=== PATIENT | female | born 1975 | race African-American/Black ===

== ENCOUNTER 2019-02-17 11:54 | Inpatient (IN) | payer OTHER ==
--- NOTE | 2019-02-17 12:36 | PDOC ---
History of Present Illness - General Chief Complaint: Back Pain Stated Complaint: SENT BY PCP / PAIN Time Seen by Provider: 02/17/19 12:36 History Source: Patient Exam Limitations: No Limitations - History of Present Illness Initial Comments: 02/17/19 13:07 43 year old female with PMH lumbar disc disease, lumbar spine surgery, nicotine user (1 cigarette 3 times a week), GERD, epidural injections (last prior to 2016 ) presented to ED for back pain x1 week. Pt was seen by Dr. Domínguez 02/11/19 for back pain, was prescribed Oxycodone 10 mg and Flexeril 10 mg on top other Gabapentin 100 mg without relief of her pain, pt was told if her pain persisted she should come to the ED. Pt stated her back pain is located to her bilateral low back, radiating down to her bilateral knees, describes a dull and sometimes sharp. Pt admitted to urinary incontinence x6 months, occurring when she coughs and after she urinates she has a few drops of urine in her underwear. Pt denied bowel incontinence, fever, chills, weakness, numbness. MRI performed 12/28/18: L3/L4 diffuse disc bulging with mild impingement of the central canal and severe left foraminal stenosis. L4/L5 diffuse disc bulging producing severe central canal and bilateral foraminal stenosis. L5/S1 moderate central canal severe right and mild left foraminal stenosis. disc material appears to contact the existing right S1 nerve root. distal cord maintains intact morphology. distal cord signal intensity is preserved. nerve roots and cauda equina appear intact. Allergies: NKDA Past History - Past Medical History Allergies/Adverse Reactions: Allergies Allergy/AdvReac Type Severity Reaction Status Date / Time No Known Allergies Allergy Unverified 02/17/19 12:07 Home Medications: Ambulatory Orders Ferrous Sulfate 325 mg PO BID 02/17/19 Gabapentin 300 mg PO TID 02/17/19 Omeprazole 20 mg PO DAILY 02/17/19 Oxycodone HCl 10 mg PO Q8H PRN 02/17/19 Anemia: Yes Asthma: Yes Cancer: No Cardiac Disorders: No CVA: No COPD: No CHF: No Dementia: No Diabetes: No GI Disorders: Yes (GERD) Disorders: No HTN: No Hypercholesterolemia: No Liver Disease: No Seizures: No Thyroid Disease: No - Surgical History Abdominal Surgery: No Appendectomy: No Cardiac Surgery: No Cholecystectomy: No Lung Surgery: No Neurologic Surgery: No Orthopedic Surgery: Yes (laminectomy 10/22/16) - Suicide/Smoking/Psychosocial Hx Smoking History: Current some day smoker Have you smoked in the past 12 months: Yes Number of Cigarettes Smoked Daily: 3 If you are a former smoker, when did you quit?: 07/11/16 Information on smoking cessation initiated: No 'Breaking Loose' booklet given: 10/20/15 Hx Alcohol Use: No Drug/Substance Use Hx: No Substance Use Type: Alcohol, Cocaine Hx Substance Use Treatment: No (rehab [facility] outpatient [facility]) Review of Systems - Review of Systems Able to Perform ROS?: Yes Comments:: 02/17/19 13:11 General: denied fever, chills, generalized weakness. HEENT: denied sore throat, rhinorrhea, ear pain. Heart: denied chest pain, palpitations, syncope, diaphoresis. Respiratory: denied shortness of breath, cough, sputum production, hemoptysis. Abdomen: denied abdominal pain, nausea, vomiting, diarrhea, constipation, blood in stool. : denied dysuria, increased urinary frequency, hematuria, flank pain. Back: admitted to back pain. Musculoskeletal: denied joint pain, muscle pain, joint swelling. Neurological: admitted to urinary incontinence. denied headache, dizziness, numbness, tingling, weakness. Skin: denied rash, laceration, abrasion. *Physical Exam - Vital Signs Last Vital Signs Temp Pulse Resp BP Pulse Ox 98.7 F 97 H 20 145/90 100 02/17/19 12:05 02/17/19 12:05 02/17/19 12:05 02/17/19 12:05 02/17/19 12:05 - Physical Exam Comments: 02/17/19 13:13 Constitutional: Well-nourished, Well-developed, appearing stated age. HEENT: head is normocephalic, atraumatic. EOMI. PERRLA. Neck: supple. Full ROM. Heart: regular rhythm. no murmurs, rubs or gallops. Lungs: clear to auscultation bilaterally. no crackles, rhonchi or wheezing. no stridor. Abdomen: soft, nontender. normal bowel sounds. no rebound, guarding, masses. Extremities: peripheral pulses intact. no lower extremity edema. Back: tenderness to palpation of midline lumbar spine. no tenderness to palpation of lumabr paraspinal area. no rash to back. negative straight leg testing bilaterally. Rectal: good rectal tone. Neurological: CN 2-12 grossly intact. moves all four extremities, decreased LE strength secondary to back pain. Psych: awake, alert, oriented x3. follows commands. answers questions appropriately. ED Treatment Course - LABORATORY CBC & Chemistry Diagram: 02/18/19 07:00 02/18/19 07:00 Medical Decision Making - Medical Decision Making 02/17/19 13:14 43 year old female with above PMH sent to ED by Dr. Domínguez for intractable back pain. Initial Vital Signs Temp Pulse Resp BP Pulse Ox 98.7 F 97 H 20 145/90 100 02/17/19 12:05 02/17/19 12:05 02/17/19 12:05 02/17/19 12:05 02/17/19 12:05 Afebrile. No tachycardia. No tachypnea. Mild hypertension. No hypoxia on room air. Labs ordered: CBC, CMP, ESR Imaging ordered: CXR Medications ordered: Robaxin 1.5 g PO once, Prednisone 60 mg PO once,Lidocaine patch EKG performed at 02/17/19 13:58 [facility] and the lab are not communicating, cannot see lab results in the computer. 02/17/19 14:18 Dr. Bansal spoke with Dr. Domínguez, pt to be admitted with Neurosurgery consult. MRI lumbar spine ordered. Dr. Yip paged. 02/17/19 14:58 CMP Sodium 137 mmol/L (136-145) 02/17/19 13:45 Potassium 4.1 mmol/L (3.5-5.1) 02/17/19 13:45 Chloride 105 mmol/L (98-107) 02/17/19 13:45 Carbon Dioxide 25 mmol/L (21-32) 02/17/19 13:45 Anion Gap 7 MMOL/L (8-16) L 02/17/19 13:45 BUN 8 mg/dL (7-18) 02/17/19 13:45 Creatinine 0.6 mg/dL (0.55-1.3) 02/17/19 13:45 Est GFR (CKD-EPI)AfAm 130.30 02/17/19 13:45 Est GFR (CKD-EPI)NonAf 112.42 02/17/19 13:45 Random Glucose 84 mg/dL (74-106) 02/17/19 13:45 Calcium 9.1 mg/dL (8.5-10.1) 02/17/19 13:45 Total Bilirubin 0.3 mg/dL (0.2-1) 02/17/19 13:45 AST 17 U/L (15-37) 02/17/19 13:45 ALT 26 U/L (13-61) 02/17/19 13:45 Alkaline Phosphatase 74 U/L (45-117) 02/17/19 13:45 Total Protein 7.6 g/dl (6.4-8.2) 02/17/19 13:45 Albumin 3.6 g/dl (3.4-5.0) 02/17/19 13:45 Serum , Qual Negative 02/17/19 13:45 No electrolyte abnormalities. No LONDON. No transaminitis. Serum testing negative. 02/17/19 15:06 CBC WBC 8.9 K/mm3 (4.0-10.0) 02/17/19 13:45 RBC 4.20 M/mm3 (3.60-5.2) 02/17/19 13:45 Hgb 9.9 GM/dL (10.7-15.3) L 02/17/19 13:45 Hct 32.4 % (32.4-45.2) 02/17/19 13:45 MCV 77.0 fl (80-96) L 02/17/19 13:45 MCH 23.5 pg (25.7-33.7) L 02/17/19 13:45 MCHC 30.5 g/dl (32.0-36.0) L 02/17/19 13:45 RDW 19.5 % (11.6-15.6) H 02/17/19 13:45 Plt Count 505 K/MM3 (134-434) H 02/17/19 13:45 MPV 7.3 fl (7.5-11.1) L 02/17/19 13:45 Absolute Neuts (auto) 5.5 K/mm3 (1.5-8.0) 02/17/19 13:45 Neutrophils % 62.5 % (42.8-82.8) 02/17/19 13:45 Lymphocytes % 28.7 % (8-40) 02/17/19 13:45 Monocytes % 6.3 % (3.8-10.2) 02/17/19 13:45 Eosinophils % 1.9 % (0-4.5) 02/17/19 13:45 Basophils % 0.6 % (0-2.0) 02/17/19 13:45 Nucleated RBC % 0 % (0-0) 02/17/19 13:45 ESR 27 mm/hr (0-20) H 02/17/19 13:45 No leukocytosis. Microcytic anemia. Thrombocytosis. Mild elevation of ESR. Dr. Bansal spoke with Dr. Yip. Dr. Bansal spoke with Dr. Domínguez. Pt to be admitted for intactable back pain requiring neurosurgery evaluation. *DC/Admit/Observation/Transfer Diagnosis at time of Disposition: Back pain - Discharge Dispostion Condition at time of disposition: Stable Decision to Admit order: Yes - Referrals - Patient Instructions - Post Discharge Activity
[2019-02-17] MEDS ORDERED: KETOROLAC TROMETHAMINE 30 MG/1 ML VIAL IVPUSH ONE ×2 (13:57→22:55)
[2019-02-17] MEDS ORDERED: predniSONE 20 MG TABLET (UD) PO ONE (13:57)
[2019-02-17] MEDS ORDERED: METHOCARBAMOL 750 MG TABLET PO ONE (14:00)
[2019-02-17] MEDS ORDERED: predniSONE 20 MG TABLET (UD) ONE (14:06)
[2019-02-17] MEDS ORDERED: KETOROLAC TROMETHAMINE 30 MG/1 ML VIAL ONE (14:07)
[2019-02-17] MEDS ORDERED: METHOCARBAMOL 500 MG TABLET ONE (14:07)
[2019-02-17] MEDS ORDERED: morphine CARPU-JECT 4 MG/1 ML DISP.SYRIN IVPUSH ONE (14:12)
[2019-02-17] MEDS ORDERED: LIDOCAINE 5% TOPICAL PATCH TP ONE (14:12)
--- NOTE | 2019-02-17 14:15 | PDOC ---
Documentation entered by Libertad Hernandez SCRIBE, acting as scribe for Renita Bansal DO. Renita Bansal DO: This documentation has been prepared by the oliviaibe, Libertad Hernandez SCRIBE, under my direction and personally reviewed by me in its entirety. I confirm that the documentation accurately reflects all work, treatment, procedures, and medical decision making performed by me. Attending Attestation - Resident Resident Name: Marcia Ballard - ED Attending Attestation I have performed the following: I have examined & evaluated the patient, The case was reviewed & discussed with the resident, I agree w/resident's findings & plan, Exceptions are as noted - HPI HPI: 02/17/19 14:37 The patient is a 43 year old female, with a past medical history of lumbar disc disease, epidural injections, GERD, current smoker (smokes cigarette 3x a week) , who presents to the ED for 1 week of back pain. Patient saw Dr. Domínguez on for the pain and was prescribed oxycodone 10 mg and gabapentin 100 mg. Patient has been taking the medications with no relief of her symptoms. She was advised to report to the ED for further evaluation if her pain persisted. Patient is also complaining of urinary incontinence. She denies any fevers, chills, nausea, vomiting, diarrhea, or abdominal pain. Denies any chest pain or shortness of breath. Denies any weakness, lightheadedness, or changes in strength or sensation. - Physicial Exam PE: 02/17/19 14:46 GENERAL: Awake, alert, and fully oriented, in no acute distress HEAD: No signs of trauma EYES: PERRLA, EOMI, sclera anicteric, conjunctiva clear ENT: Auricles normal inspection, hearing grossly normal, nares patent, oropharynx clear without exudates. Moist mucosa NECK: Normal ROM, supple, no lymphadenopathy, JVD, or masses LUNGS: Breath sounds equal, clear to auscultation bilaterally. No wheezes, and no crackles HEART: Regular rate and rhythm, normal S1 and S2, no murmurs, rubs or gallops ABDOMEN: Soft, nontender, normoactive bowel sounds. No guarding, no rebound. No masses MSK: (+)Midline spinal tenderness, B/L paraspinal tenderness, +straight leg raise, patient has pain at L3/L4/L5. EXTREMITIES: Normal range of motion, no edema. No clubbing or cyanosis. No cords, erythema. NEUROLOGICAL: Cranial nerves II through XII grossly intact. Normal speech. SKIN: Warm, Dry, normal turgor, no rashes or lesions noted - Medical Decision Making 02/17/19 14:13 I, Dr. Renita Bansal, DO, attest that this document has been prepared under my direction and personally reviewed by me in its entirety. I further attest, that it accurately reflects all work, treatment, procedures and medical decision -making performed by me. 02/17/19 14:13 a/p: 43yo female with hx of herniated disc from l3-4 and prior sx presents with worsening lbp and radiation down the legs -hx of urinary incontinence x 6m -hx of lumbar sx at [facility] with Dr. Frias in 2017, still with pain -has been on oxy x 1 week without improvement -denies new trauma -will send labs, will discuss with Dr. Domínguez, call placed to Dr. Yip -pain control -will monitor and reassess 02/17/19 14:[address] Domínguez who accepts pt to service requests MRI lumbar spine states he spoke with Dr. Yip 02/17/19 14:35 case discussed with Ricky Wilson NP who accepts pt to service 02/17/19 15:[address] Yip who will see patient in consult 02/17/19 15:23 labs reviewed Heart Score/ECG Review - ECG Intrepretation Comment:: 02/17/19 14:49 sinus at 86, nl axis, nl interval, no acute st/t wave findings
[2019-02-17] MEDS ORDERED: LIDOCAINE 5% TOPICAL PATCH ONE (14:18)
[2019-02-17] MEDS ORDERED: morphine SULFATE 4 MG/ML VIAL ONE (14:18)
[2019-02-17 14:28] LABS: BASO % 0.6 % (0-2.0); EOS % 1.9 % (0-4.5); HEMATOCRIT 32.4 % (32.4-45.2); HEMOGLOBIN 9.9 GM/dL (10.7-15.3); LYMPH % 28.7 % (8-40); MCH 23.5 pg (25.7-33.7); MCHC 30.5 g/dl (32.0-36.0); MEAN PLT VOLUME 7.3 fl (7.5-11.1); MONO % 6.3 % (3.8-10.2); NEUT % 62.5 % (42.8-82.8); PLATELET COUNT 505 K/MM3 (134-434); RDW 19.5 % (11.6-15.6); WHITE BLOOD COUNT 8.9 K/mm3 (4.0-10.0)
[2019-02-17] MEDS ORDERED: DEXAMETHASONE SOD PHOSPHATE 20 MG/5 ML VIAL IVPB SCH (14:45)
[2019-02-17 14:54] LABS: ALBUMIN 3.6 g/dl (3.4-5.0); BILIRUBIN,TOTAL 0.3 mg/dL (0.2-1); CALCIUM 9.1 mg/dL (8.5-10.1); CREATININE 0.6 mg/dL (0.55-1.3); POTASSIUM 4.1 mmol/L (3.5-5.1); TOT PROT 7.6 g/dl (6.4-8.2)
[2019-02-17 15:02] LABS: ERYTHROCYTE SEDIMENTATION RATE 27 mm/hr (0-20)
[2019-02-17] MEDS ORDERED: DEXAMETHASONE SOD PHOSPHATE 4 MG/1 ML VIAL ONE (15:52)
--- NOTE | 2019-02-17 16:58 | HP ---
Admitting History and Physical - Primary Care Physician PCP: Hieu Domínguez - Admission Chief Complaint: chronic lower back pain History of Present Illness: Patient is a 43 y/o female with past medical history of lumbar disc disease, epidural injections, GERD. Patient presented to [facility] ER after complaints of worsening lower back pain over past couple of days. Pain is described as sharp and radiates down both lower legs. She states urinary incontinence is also accompanied with lower back pain. Patient currently taking oxycodone and gabapentin at home with minor relief. Most recent MRI from [facility] shows lumbar spondylosis. Patient denies fevers, chills, unintentional weight loss. Denies SOB, chest pain, dyspnea on exertion. History Source: Patient Limitations to Obtaining History: No Limitations - Past Medical History Gastrointestinal: Yes: GERD ...LMP: 12/20/15 - Past Surgical History Past Surgical History: Yes: - Smoking History Smoking history: Current some day smoker Have you smoked in the past 12 months: Yes Aproximately how many cigarettes per day: 3 If you are a former smoker, when did you quit?: 07/11/16 - Alcohol/Substance Use Hx Alcohol Use: No - Social History Usual Living Arrangement: Yes: With Spouse ADL: Independent History of Recent Travel: No Home Medications - Allergies Allergies/Adverse Reactions: Allergies Allergy/AdvReac Type Severity Reaction Status Date / Time No Known Allergies Allergy Unverified 02/17/19 12:07 - Home Medications Home Medications: Ambulatory Orders Ferrous Sulfate 325 mg PO BID 02/17/19 Omeprazole 20 mg PO DAILY 02/17/19 Oxycodone HCl 10 mg PO Q8H PRN 02/17/19 Cyclobenzaprine HCl [Flexeril -] 10 mg PO BID #8 tablet 02/19/19 Ferrous Sulfate [Feosol] 325 mg PO BID ud 02/19/19 Gabapentin [Neurontin -] 300 mg PO TID #36 capsule 02/19/19 Polyethylene Glycol 3350 [Miralax 119 gm Btl -] 17 gm PO DAILY #1 bottle Sennosides [Senna -] 2 tab PO HS PRN #60 tablet 02/19/19 oxyCODONE HCL [Roxicodone -] 10 mg PO Q8H PRN tablet MDD 3 02/19/19 Family Disease History - Family Disease History Family Disease History: [place]: Grandparent, Other: Mother (smoked dust many years ago) Review of Systems - Review of Systems Constitutional: reports: Weakness Eyes: reports: No Symptoms HENT: reports: No Symptoms Neck: reports: No Symptoms Cardiovascular: reports: No Symptoms Respiratory: reports: No Symptoms Gastrointestinal: reports: Abdominal Pain, Constipation, Nausea Genitourinary: reports: Incontinence Breasts: reports: No Symptoms Reported Musculoskeletal: reports: Back Pain Integumentary: reports: No Symptoms Neurological: reports: Numbness (lower extremities) Endocrine: reports: No Symptoms Hematology/Lymphatic: reports: No Symptoms Psychiatric: reports: No Symptoms Physical Examination Vital Signs: Vital Signs Temperature 98.7 F 02/17/19 12:05 Pulse Rate 96 H 02/17/19 15:44 Respiratory Rate 18 02/17/19 15:44 Blood Pressure 139/87 02/17/19 15:44 O2 Sat by Pulse Oximetry (%) 97 02/17/19 15:44 Constitutional: Yes: No Distress, Calm, Obese Eyes: Yes: Conjunctiva Clear HENT: Yes: Atraumatic Neck: Yes: Supple Cardiovascular: Yes: Regular Rate and Rhythm Respiratory: Yes: Regular, CTA Bilaterally Gastrointestinal: Yes: Normal Bowel Sounds, Soft, Tenderness (llq) Musculoskeletal: Yes: Back Pain (lower), Muscle Weakness Extremities: Yes: WNL Edema: No Neurological: Yes: Alert, Oriented Psychiatric: Yes: Alert, Oriented Labs: CBC, BMP 02/17/19 13:45 02/17/19 13:45 Problem List - Problems (1) Lumbar spondylosis Assessment/Plan: -Neurosurgery consult -pain management -Lumbar Spine MRI -PT -Decadron IVPB q6h Code(s): M47.816 - SPONDYLOSIS W/O MYELOPATHY OR RADICULOPATHY, LUMBAR REGION (2) GERD (gastroesophageal reflux disease) Assessment/Plan: -pantoprazole Code(s): K21.9 - GASTRO-ESOPHAGEAL REFLUX DISEASE WITHOUT ESOPHAGITIS
[2019-02-17 17:12] VITALS: BMI 41.5
[2019-02-17] MEDS ORDERED: LORazepam 1 MG TABLET PO ONE (18:21)
[2019-02-17] MEDS: oxyCODONE HCL 5 MG TABLET PO PRN (18:34)
[2019-02-17] MEDS: FERROUS SO4 325 MG TABLET (FP) PO SCH (21:50)
[2019-02-17] MEDS: GABAPENTIN 100 MG CAPSULE (FP) PO SCH (21:50)
[2019-02-17] MEDS: LIDOCAINE PATCH REMOVAL MC SCH (21:55)
[2019-02-18] MEDS: DEXAMETHASONE SOD PHOSPHATE 4 MG/1 ML VIAL IVPB SCH ×3 (01:10→17:36)
[2019-02-18] MEDS: oxyCODONE HCL 5 MG TABLET PO PRN ×3 (03:12→19:51)
[2019-02-18] MEDS: GABAPENTIN 100 MG CAPSULE (FP) PO SCH ×4 (05:48→21:28)
[2019-02-18 07:47] LABS: BASO % 0.2 % (0-2.0); HEMATOCRIT 29.5 % (32.4-45.2); HEMOGLOBIN 8.9 GM/dL (10.7-15.3); LYMPH % 9.3 % (8-40); MCH 23.5 pg (25.7-33.7); MCHC 30.3 g/dl (32.0-36.0); MEAN CELL VOLUME 77.6 fl (80-96); MEAN PLT VOLUME 7.4 fl (7.5-11.1); MONO % 3.1 % (3.8-10.2); NEUT % 87.4 % (42.8-82.8); PLATELET COUNT 502 K/MM3 (134-434); RBC 3.81 M/mm3 (3.60-5.2); RDW 19.1 % (11.6-15.6); WHITE BLOOD COUNT 13.4 K/mm3 (4.0-10.0)
[2019-02-18 08:56] LABS: ALBUMIN 3.5 g/dl (3.4-5.0); BILIRUBIN,TOTAL 0.2 mg/dL (0.2-1); CALCIUM 8.8 mg/dL (8.5-10.1); CREATININE 0.7 mg/dL (0.55-1.3); MAGNESIUM 2.3 mg/dL (1.8-2.4); PHOSPHOROUS 2.7 mg/dL (2.5-4.9); POTASSIUM 4.4 mmol/L (3.5-5.1); TOT PROT 7.5 g/dl (6.4-8.2)
--- NOTE | 2019-02-18 10:29 | PN ---
Progress Note, Physician Chief Complaint: Lumbar Spondylosis History of Present Illness: Previous notes and events reviewed awake and alert NAD Patient is refusing surgery, she states she does not have much outside family support for post-op phase and is scared of risks that come with surgery - Current Medication List Current Medications: Active Medications Dexamethasone Sodium Phosphate (Decadron Injection -) 4 mg IVPB Q8H-IV [facility] Last Admin: 02/18/19 01:10 Dose: 4 mg Ferrous Sulfate (Feosol -) 325 mg PO BID [facility] Last Admin: 02/17/19 21:50 Dose: 325 mg Gabapentin (Neurontin -) 100 mg PO TID [facility] Last Admin: 02/18/19 05:48 Dose: 100 mg Miscellaneous (Lidoderm Patch Removal) 1 each MC DAILY@2200 [facility] Last Admin: 02/17/19 21:55 Dose: 1 each Oxycodone HCl (Roxicodone -) 10 mg PO Q8H PRN PRN Reason: PAIN LEVEL 7 - 10 Last Admin: 02/18/19 03:12 Dose: 10 mg Pantoprazole Sodium (Protonix -) 40 mg PO DAILY [facility] - Objective Vital Signs: Vital Signs Temperature 98.2 F 02/18/19 04:00 Pulse Rate 89 02/18/19 04:00 Respiratory Rate 18 02/18/19 04:00 Blood Pressure 136/76 02/18/19 04:00 O2 Sat by Pulse Oximetry (%) 97 02/17/19 15:44 Constitutional: Yes: No Distress, Calm, Obese Eyes: Yes: Conjunctiva Clear HENT: Yes: Atraumatic Cardiovascular: Yes: Regular Rate and Rhythm Respiratory: Yes: Regular, CTA Bilaterally Gastrointestinal: Yes: Normal Bowel Sounds, Soft, Tenderness (llq) Musculoskeletal: Yes: Muscle Weakness Extremities: Yes: WNL Edema: No Neurological: Yes: Alert, Oriented Psychiatric: Yes: Alert, Oriented Labs: CBC, BMP 02/18/19 07:00 02/18/19 07:00 Problem List - Problems (1) Lumbar spondylosis Assessment/Plan: -Neurosurgery consult -pain management consult placed -Lumbar Spine CT scan performed -PT -Decadron IVPB q6h -patient is refusing surgery at present and would like conservative measures with PT and pain management Code(s): M47.816 - SPONDYLOSIS W/O MYELOPATHY OR RADICULOPATHY, LUMBAR REGION (2) GERD (gastroesophageal reflux disease) Assessment/Plan: -pantoprazole Code(s): K21.9 - GASTRO-ESOPHAGEAL REFLUX DISEASE WITHOUT ESOPHAGITIS Assessment/Plan see problem list dvt ppx
[2019-02-18] MEDS: PANTOPRAZOLE 40 MG TABLET (FP) PO SCH (10:42)
[2019-02-18] MEDS: FERROUS SO4 325 MG TABLET (FP) PO SCH ×2 (10:42→21:28)
[2019-02-18] MEDS ORDERED: KETOROLAC TROMETHAMINE 30 MG/1 ML VIAL IM PRN (11:12)
--- NOTE | 2019-02-18 13:25 | CONSULT ---
Consult - text type - Consultation Consultation Note: NEUROSURGERY CONSULTATION Pippa Hannah is a 43 year old Female who has achief complaint of low back and leg pains. The patient was referred to [facility] by Dr. Hieu Domínguez for further evaluation and management. 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 Over time, the Low back pain increased and eventually forced her to stop working. She described progressive disability and ultimately underwent decompressive surgery at [facility] with Dr. Frye. She underwent Left L34 discectomy via a minimally invasive approach. She has a well healed 3cm scar on her back. She describes urinary incontinence since the time of the surgery. The patient has aggravation of back pain with vibration and jostling such as riding in a car over a bumpy road, pot holes or rail road tracks. The patient has some aggravation of symptoms associated with Valsalvas maneuver. The patient walks better with a stooped posture such as pushing a shopping cart. MRI Lumbar is not available for review. By report, she has degenerative changes at L34, L45 and L5S1. CT Lumbar demonstrates Lumbar degenerative disease with moderate to severe spondylosis with osteophytes, disc bulges and hypertrophic facets and ligamentum flavum. There is evidence of prior decompression at L34 on the Left. The patient describes severe limitations of activities of daily living and a poor quality of life. I described the potential role of injections, bracing, and Physical Therapy as well as medical management in detail. After review of the patients symptoms and imaging, the patient would likely benefit from decompression and stabilization in the Lumbar spine. I described the risks, benefits and alternativesof L3-S1 laminectomies, reoperative at L34 , with interbody cages and arthrodesis and pedicle screws from L3-S1 for posterior/lateral fusion in great detail. I explained that the risks included, but were not limited to: , coma, paralysis, bleeding, infection, CSF leak possibly requiring spinal drainage or additional surgery, failure to fuse, failure to improve, instrumentation migration/malposition/malfunction and the need for additional surgery. I offered the patient the option to seek another opinion or another surgeon. All questions were answered. It is possible that careful review of the MRI may suggest that a more limited treatment may be of benefit. I strongly encouraged an opportunity to review her MRI prior to making final decisions regarding surgery. The patient states that she does not wish to proceed with surgery at this time. I would not push her towards surgery and feel that Pain Management & Epidural Steroid injection may be a good interim step for her. She will also likely benefit from a program of Physical Therapy and weight reduction.
--- NOTE | 2019-02-18 14:27 | EKG ---
Test Reason : Blood Pressure : / mmHG Vent. Rate : 086 BPM Atrial Rate : 086 BPM P-R Int : 146 ms QRS Dur : 080 ms QT Int : 386 ms P-R-T Axes : 021 023 080 degrees QTc Int : 461 ms POOR DATA QUALITY, INTERPRETATION MAY BE ADVERSELY AFFECTED NORMAL SINUS RHYTHM NONSPECIFIC T WAVE ABNORMALITY PROLONGED QT ABNORMAL ECG NO PREVIOUS ECGS AVAILABLE Confirmed by SPRING NGUYEN, TIERRA ([id number]) on 02/18/2019 2:26:54 PM Referred By: Confirmed By:TIERRA LONDONO MD
[2019-02-18] MEDS: CYCLOBENZAPRINE HCL 10 MG TABLET (FP) PO SCH (21:28)
[2019-02-18] MEDS: LIDOCAINE PATCH REMOVAL MC SCH (21:29)
[2019-02-18] MEDS ORDERED: SENNOSIDES 8.6MG TABLET (FP) PO PRN (21:56)
[2019-02-18] MEDS ORDERED: INSULIN (NOVOLOG) ASPART 100 UNITS/ML 10ML VIAL SQ ONE (21:58)
[2019-02-19] MEDS: DEXAMETHASONE SOD PHOSPHATE 4 MG/1 ML VIAL IVPB SCH ×2 (01:28→09:00)
[2019-02-19] MEDS: oxyCODONE HCL 5 MG TABLET PO PRN (04:15)
[2019-02-19] MEDS: GABAPENTIN 100 MG CAPSULE (FP) PO SCH (05:43)
[2019-02-19 06:44] VITALS: BP 129/72; PULSE 77; TEMP 98.2
[2019-02-19] MEDS: CYCLOBENZAPRINE HCL 10 MG TABLET (FP) PO SCH (09:36)
[2019-02-19] MEDS: FERROUS SO4 325 MG TABLET (FP) PO SCH (09:39)
[2019-02-19] MEDS: PANTOPRAZOLE 40 MG TABLET (FP) PO SCH (09:39)
--- NOTE | 2019-02-19 09:48 | DS ---
"Physical Examination Vital Signs: Vital Signs Temperature 98.2 F 02/19/19 06:40 Pulse Rate 77 02/19/19 06:40 Respiratory Rate 20 02/19/19 06:40 Blood Pressure 129/72 02/19/19 06:40 O2 Sat by Pulse Oximetry (%) 97 02/18/19 21:00 Findings/Remarks: Patient is a 43 y/o female with past medical history of lumbar disc disease, epidural injections, GERD. Patient presented to [facility] ER after complaints of worsening lower back pain over past couple of days. Pain is described as sharp and radiates down both lower legs. She states urinary incontinence is also accompanied with lower back pain. Patient currently taking oxycodone and gabapentin at home with minor relief. Most recent MRI from [facility] shows lumbar spondylosis. Constitutional: Yes: No Distress, Calm Eyes: Yes: Conjunctiva Clear HENT: Yes: Atraumatic Cardiovascular: Yes: Regular Rate and Rhythm Respiratory: Yes: Regular, CTA Bilaterally Gastrointestinal: Yes: Normal Bowel Sounds, Soft, Abdomen, Obese Musculoskeletal: Yes: Muscle Weakness Extremities: Yes: WNL Edema: No Neurological: Yes: Alert, Oriented Psychiatric: Yes: Alert, Oriented Labs: CBC, BMP 02/18/19 07:00 02/18/19 07:00 Discharge Summary Reason For Visit: BACK PAIN Current Active Problems Back pain (Acute) Lumbar spondylosis (Acute) Hospital Course: see progress notes Laboratory Tests 02/17/19 02/17/19 02/17/19 13:45 13:45 13:45 WBC 8.9 RBC 4.20 Hgb 9.9 L Hct 32.4 MCV 77.0 L MCH 23.5 L MCHC 30.5 L RDW 19.5 H Plt Count 505 H MPV 7.3 L Absolute Neuts (auto) 5.5 Neutrophils % 62.5 Lymphocytes % 28.7 Monocytes % 6.3 Eosinophils % 1.9 Basophils % 0.6 Nucleated RBC % 0 ESR 27 H Sodium 137 Potassium 4.1 Chloride 105 Carbon Dioxide 25 Anion Gap 7 L BUN 8 Creatinine 0.6 Est GFR (CKD-EPI)AfAm 130.30 Est GFR (CKD-EPI)NonAf 112.42 POC Glucometer Random Glucose 84 Calcium 9.1 Phosphorus Magnesium Total Bilirubin 0.3 AST 17 ALT 26 Alkaline Phosphatase 74 Total Protein 7.6 Albumin 3.6 Total Amylase Lipase TSH Serum , Qual Negative 02/17/19 02/17/19 02/18/19 16:24 21:58 07:00 WBC 13.4 H RBC 3.81 Hgb 8.9 L Hct 29.5 L MCV 77.6 L MCH 23.5 L MCHC 30.3 L RDW 19.1 H Plt Count 502 H MPV 7.4 L Absolute Neuts (auto) 11.7 H Neutrophils % 87.4 H D Lymphocytes % 9.3 D Monocytes % 3.1 L Eosinophils % 0.0 D Basophils % 0.2 Nucleated RBC % 0 ESR Sodium Potassium Chloride Carbon Dioxide Anion Gap BUN Creatinine Est GFR (CKD-EPI)AfAm Est GFR (CKD-EPI)NonAf POC Glucometer 101 294 Random Glucose Calcium Phosphorus Magnesium Total Bilirubin AST ALT Alkaline Phosphatase Total Protein Albumin Total Amylase Lipase TSH Serum , Qual 02/18/19 02/18/19 02/18/19 07:00 11:55 16:44 WBC RBC Hgb Hct MCV MCH MCHC RDW Plt Count MPV Absolute Neuts (auto) Neutrophils % Lymphocytes % Monocytes % Eosinophils % Basophils % Nucleated RBC % ESR Sodium 134 L Potassium 4.4 Chloride 103 Carbon Dioxide 22 Anion Gap 9 BUN 9 Creatinine 0.7 Est GFR (CKD-EPI)AfAm 123.86 Est GFR (CKD-EPI)NonAf 106.87 POC Glucometer 219 229 Random Glucose 234 H Calcium 8.8 Phosphorus 2.7 Magnesium 2.3 Total Bilirubin 0.2 AST 11 L ALT 27 Alkaline Phosphatase 76 Total Protein 7.5 Albumin 3.5 Total Amylase 71 Lipase 96 TSH 0.31 L Serum , Qual 02/18/19 02/19/19 21:25 05:44 WBC RBC Hgb Hct MCV MCH MCHC RDW Plt Count MPV Absolute Neuts (auto) Neutrophils % Lymphocytes % Monocytes % Eosinophils % Basophils % Nucleated RBC % ESR Sodium Potassium Chloride Carbon Dioxide Anion Gap BUN Creatinine Est GFR (CKD-EPI)AfAm Est GFR (CKD-EPI)NonAf POC Glucometer 306 265 Random Glucose Calcium Phosphorus Magnesium Total Bilirubin AST ALT Alkaline Phosphatase Total Protein Albumin Total Amylase Lipase TSH Serum , Qual Active Medications Generic Name Dose Route Start Last Admin Trade Name Freq PRN Reason Stop Dose Admin Cyclobenzaprine HCl 10 mg 02/18/19 22:00 02/19/19 09:36 Flexeril - PO Not Given BID TAYE Dexamethasone Sodium Phosphate 4 mg 02/17/19 22:05 02/19/19 09:00 Decadron Injection - IVPB Not Given Q8H-IV TAYE Ferrous Sulfate 325 mg 02/17/19 22:00 02/19/19 09:39 Feosol - PO 325 mg BID TAYE Administration Gabapentin 300 mg 02/18/19 11:30 02/19/19 05:43 Neurontin - PO 300 mg TID TAYE Administration Ketorolac Tromethamine 30 mg 02/18/19 11:12 Toradol Injection - IM 02/23/19 21:59 BID PRN PAIN LEVEL 4 - 6 Miscellaneous 1 each 02/17/19 22:00 02/18/19 21:29 Lidoderm Patch Removal MC 1 each DAILY@2200 TAYE Administration Oxycodone HCl 10 mg 02/17/19 16:51 02/19/19 04:15 Roxicodone - PO 10 mg Q8H PRN Administration PAIN LEVEL 7 - 10 Pantoprazole Sodium 40 mg 02/18/19 10:00 02/19/19 09:39 Protonix - PO 40 mg DAILY TAYE Administration Polyethylene Glycol 17 gm 02/19/19 10:00 02/19/19 09:35 Miralax (For Daily Use) - PO Not Given DAILY TAYE Senna 2 tab 02/18/19 21:56 02/18/19 22:13 Senna - PO 2 tab HS PRN Administration CONSTIPATION Condition: Stable - Instructions Diet, Activity, Other Instructions: Patient instructed to follow up with PMD in 72 hrs Given referral for Dr Fregoso pain management continue with medication as prescribed return to ER if severe pain, chest pain, respiratory distress, unable to ambulate [facility]: This report was requested by: Jennifer Vazquez | Reference #: [id number] Referrals: Cody Yip MD, FAANS [Staff Physician] - Hardik Fregoso MD [Staff Physician] - Disposition: HOME - Home Medications Comprehensive Discharge Medication List: Ambulatory Orders Ferrous Sulfate 325 mg PO BID 02/17/19 Omeprazole 20 mg PO DAILY 02/17/19 Oxycodone HCl 10 mg PO Q8H PRN 02/17/19 Cyclobenzaprine HCl [Flexeril -] 10 mg PO BID #8 tablet 02/19/19 Ferrous Sulfate [Feosol] 325 mg PO BID ud 02/19/19 Gabapentin [Neurontin -] 300 mg PO TID #36 capsule 02/19/19 Polyethylene Glycol 3350 [Miralax 119 gm Btl -] 17 gm PO DAILY #1 bottle Sennosides [Senna -] 2 tab PO HS PRN #60 tablet 02/19/19 oxyCODONE HCL [Roxicodone -] 10 mg PO Q8H PRN tablet MDD 3 02/19/19"
[2019-02-19] MEDS ORDERED: POLYETHYLENE GLYCOL 3350 119 GM BTL PO SCH (10:00)
--- NOTE | 2019-02-19 10:53 | PN ---
Progress Note (short form) - Note Progress Note: Patient stable Ready for discharge Discussed conservative plan of care with KRISTY. All questions answered
== END 2019-02-19 10:30 | disposition home or self-care (01) | DRG 347 ==
LOC: JER 11:54 → JERBED 14:17 → J8W 16:45
PROVIDERS: ADMIT Family Medicine; ATTEND Family Medicine
DX: M47.816 Spondylosis without myelopathy or radiculopathy, lumbar region (principal); Z68.41 Body mass index [BMI] 40.0-44.9, adult; M48.061 Spinal stenosis, lumbar region without neurogenic claudication; K21.9 Gastro-esophageal reflux disease without esophagitis; E66.9 Obesity, unspecified; F17.210 Nicotine dependence, cigarettes, uncomplicated; R32 Unspecified urinary incontinence
CPT/HCPCS: 36415; 71045-TC-FY; 72131-TC; 76856-TC; 80053; 82150; 82962; 83690; 83735; 84100; 84436; 84443; 84703; 85025; 85651; 93005; 93010; 97116-GP; 97161-GP; 99285-25